=== PATIENT | male | born 1935 | race Caucasian/White ===

== ENCOUNTER 2017-06-08 06:05 | Emergency (ER) | payer OTHER ==
[~2017-06-08] VITALS: Ht 170.2 cm; Wt 92.5 kg
[2017-06-08 06:11] VITALS: BP 132/64
[2017-06-08] MEDS ORDERED: BACITRACIN-POLYMYXIN B TOPICAL OINT UD TOP ONE ×2 (07:04→07:15)
== END 2017-06-08 07:49 | disposition home or self-care (01) ==
LOC: ER 06:05
DX: S61.200D Unspecified open wound of right index finger without damage to nail, subsequent encounter (principal); I10 Essential (primary) hypertension; E07.89 Other specified disorders of thyroid; X58.XXXD Exposure to other specified factors, subsequent encounter

== ENCOUNTER 2019-11-04 17:42 | Emergency (ER) | payer OTHER ==
[~2019-11-04] VITALS: Ht 170.2 cm; Wt 70.3 kg
[~2019-11-04 17:42] MED LIST: CALC667C5 PO; ERGO1CAP23 PO; FAM20T PO; FURO40TA4 PO; LEVO200T7 PO; NEPVITT PO; OMEP20TA PO; SODI325T PO
[2019-11-04 19:18] VITALS: BP 99/36
[2019-11-04 19:29] LABS: Basophils # (auto) 0.1 uL; Basophils % (auto) 1.2 % (0.0-2.0); Eosinophils # (auto) 0.1 uL; Eosinophils % (auto) 1.3 % (0.0-7.0); Hematocrit 26.8 % (41.0-53.0); Hemoglobin 9.1 g/dL (13.5-17.5); Lymphocytes # (auto) 1.4 uL; Lymphocytes % (auto) 22.9 % (10.0-50.0); Mean Corpuscular Hemoglobin 32.6 pg (28.0-32.0); Monocytes # (auto) 0.8 uL; Monocytes % (auto) 12.5 % (0.0-12.0); Neutrophils # (auto) 3.9 uL; Neutrophils % (auto) 62.1 % (37.0-80.0); Platelet Count (auto) 99 10^3/uL (140-450); Red Blood Cells 2.79 10^6/uL (4.5-5.90); Red Cell Distribution Width 14.2 % (11.8-14.3); White Blood Cell 6.2 10^3/uL (4.4-10.8)
[2019-11-04 19:43] LABS: Albumin 2.5 g/dL (3.4-5.0); BUN/Creatinine Ratio 5.5; Calcium 7.7 mg/dL (8.5-10.1); Potassium 3.1 mmol/L (3.5-5.1)
[2019-11-04 19:46] LABS: Bilirubin, Total 1.1 mg/dL (0.2-1.0); Total Protein 6.2 g/dL (6.4-8.2)
[2019-11-04] MEDS ORDERED: POTASSIUM EFFERVESENT TAB 25 MEQ PO ONE (22:00)
== END 2019-11-04 22:53 | disposition home or self-care (01) ==
LOC: ER 17:53
DX: E87.6 Hypokalemia (principal); I12.0 Hypertensive chronic kidney disease with stage 5 chronic kidney disease or end stage renal disease; N18.6 End stage renal disease; R19.7 Diarrhea, unspecified
CPT/HCPCS: 36415; 71045; 80053; 85025; 86141; 93005

== ENCOUNTER 2020-01-26 13:18 | Inpatient (IN) | payer OTHER, SELFPAY ==
[~2020-01-26] VITALS: Ht 167.6 cm; Wt 74.1 kg
[~2020-01-26 13:18] MED LIST changes: +SPIR50TA5 PO
[2020-01-26] MEDS ORDERED: SODIUM CHLORIDE 0.9% 1,000 ML IV ONE (13:27)
[2020-01-26 14:44] LABS: Basophils # (auto) 0 10 ^3/uL (0-0.2); Basophils % (auto) 0.1 % (0.0-2.0); Eosinophils # (auto) 0 10 ^3/uL (0-0.8); Eosinophils % (auto) 0.1 % (0.0-7.0); Nucleated Red Blood Cells % 0.1 %; Red Cell Distribution Width 20.3 % (11.8-14.3)
[2020-01-26 14:45] LABS: Hematocrit 28.9 % (41.0-53.0); Hemoglobin 9.6 g/dL (13.5-17.5); Mean Corpuscular Hemoglobin 33.4 pg (28.0-32.0); Mean Corpuscular Hgb Conc. 33.3 g/dL (32.0-36.0); Mean Corpuscular Volume 100.3 fL (80.0-100.0); Monocytes # (auto) 0.3 10 ^3/uL (0-1.3); Monocytes % (auto) 4.8 % (0.0-12.0); Neutrophils # (auto) 5.8 10 ^3/uL (1.6-8.6); Platelet Count (auto) 36 10^3/uL (140-450); Red Blood Cells 2.88 10^6/uL (4.5-5.90); White Blood Cell 7.1 10^3/uL (4.4-10.8)
[2020-01-26 14:58] LABS: Albumin 2.5 g/dL (3.4-5.0); Calcium 7.3 mg/dL (8.5-10.1); Potassium 3.7 mmol/L (3.5-5.1)
[2020-01-26 15:05] LABS: BUN/Creatinine Ratio 5.8; Total Protein 5.8 g/dL (6.4-8.2)
[2020-01-26 15:07] LABS: INR 1.81 (0.9-1.15); Partial Thromboplastin Time 54.8 sec (23.64-32.05)
[2020-01-26] MEDS ORDERED: MORPHINE SULF INJ 2 MG/ML SYRINGE 1ML IV PRN (17:30)
[2020-01-26] MEDS ORDERED: ERGOCALCIFEROL 50,000 UNIT(1.25MG) CAP PO SCH (17:30)
[2020-01-26] MEDS ORDERED: BUMETANIDE 2.5mg/10ml (0.25 mg/ml) INJ IV ONE (17:30)
[2020-01-26] MEDS ORDERED: NITROGLYCERIN 0.4 MG SL TAB SL PRN (17:30)
[2020-01-26] MEDS ORDERED: CHOLECALCIFEROL (VITD3) 1,000IU=25mCg TAB PO SCH (18:00)
[2020-01-26 18:09] LABS: Magnesium 1.9 mg/dL (1.6-2.6)
[2020-01-26 18:11] LABS: Lactic Acid w/Reflex 2.8 mmol/L (0.4-2.0)
[2020-01-26] MEDS: CHOLECALCIFEROL (VITD3) 1,000IU=25mCg TAB PO SCH (18:14)
[2020-01-26] MEDS: CALCIUM ACETATE 667 MG CAP PO SCH (18:14)
[2020-01-26 18:18] LABS: CRP High Sensitivity 5.35 mg/dL (< 0.3)
--- NOTE | 2020-01-26 19:04 | NUR ---
PT ARRIVED FROM ER VIA GURNEY, TRANSFERRED PT TO BED, PROVIDED COMFORTABLE ENVIRONMENT, PT AWAKE, ALERT, ORIENTEDx3. IV TO LEFT HAND #[id number]. ROSS CATHETER IN PLACE, BLOOD EVIDENT IN TUBING WITH LACK OF URINE, PT IS ESRD ON HD. PT PRESENT WITH PRESSURE ULCER WITH REDNESS TO BUTTOCKS. HYGIENE CARE PROVIDED. BED LOCKED AND IN LOWEST POSITION, CALL LIGHT WITHIN REACH.
[2020-01-26 21:01] VITALS: BP 124/61
[2020-01-26] MEDS ORDERED: PATIENTS OWN MEDICATION (Omeprazole (Gnp Omeprazole) 20 MG) PO SCH (22:00)
[2020-01-26 22:08] VITALS: BP 108/53
[2020-01-26] MEDS: FAMOTIDINE 20 MG TAB PO SCH (22:19)
[2020-01-26] MEDS: SODIUM BICARBONATE 650 MG TAB PO SCH (22:19)
[2020-01-26] MEDS: ALBUTEROL SULF HFA 90MCG INH 200DOSE IN SCH (22:35)
--- NOTE | 2020-01-26 22:35 | NUR ---
Respiratory note: ASSESSED PT. PT HAS NO S/S OF DISTRESS. POX 96-98% ON 2LPM NC. MDI NOT AVAILABLE AT THIS TIME. NO SOS OF DISTRESS NOTED. LEAD RT RADHA AND RN AWARE. WILL CONTINUE TO MONITOR, NEEDED.
[2020-01-27] VITALS (8 sets, daily range): BP systolic 92–105; BP diastolic 43–58
[2020-01-27] MEDS ORDERED: VANC125PO PO (04:12)
[2020-01-27] MEDS ORDERED: MID10T PO (04:12)
[2020-01-27] MEDS ORDERED: ERGO1CAP6 PO (04:16)
[2020-01-27] MEDS ORDERED: ALLO100T PO (04:16)
[2020-01-27] MEDS ORDERED: PANT40TA2 PO (04:16)
[2020-01-27 05:38] LABS: Basophils # (auto) 0 10 ^3/uL (0-0.2); Basophils % (auto) 0.1 % (0.0-2.0); Eosinophils # (auto) 0 10 ^3/uL (0-0.8); Eosinophils % (auto) 0.1 % (0.0-7.0); Hematocrit 25.5 % (41.0-53.0); Hemoglobin 8.7 g/dL (13.5-17.5); Lymphocytes # (auto) 1.2 10 ^3/uL (0.4-5.4); Lymphocytes % (auto) 22.8 % (10.0-50.0); Mean Corpuscular Hemoglobin 33.9 pg (28.0-32.0); Mean Corpuscular Hgb Conc. 34.2 g/dL (32.0-36.0); Mean Corpuscular Volume 99.1 fL (80.0-100.0); Monocytes # (auto) 0.2 10 ^3/uL (0-1.3); Monocytes % (auto) 4.6 % (0.0-12.0); Neutrophils # (auto) 3.7 10 ^3/uL (1.6-8.6); Neutrophils % (auto) 72.4 % (37.0-80.0); Nucleated Red Blood Cells % 0.1 %; Platelet Count (auto) 25 10^3/uL (140-450); Red Blood Cells 2.57 10^6/uL (4.5-5.90); Red Cell Distribution Width 19.3 % (11.8-14.3); White Blood Cell 5.1 10^3/uL (4.4-10.8)
[2020-01-27 05:57] LABS: Albumin 2.3 g/dL (3.4-5.0); Calcium 7.1 mg/dL (8.5-10.1); Potassium 3.9 mmol/L (3.5-5.1)
[2020-01-27 06:00] LABS: BUN/Creatinine Ratio 6.1; Bilirubin, Total 0.9 mg/dL (0.2-1.0); Total Protein 5.1 g/dL (6.4-8.2)
[2020-01-27] MEDS ORDERED: ALBUTEROL SULFATE 90 MCG MDI IN ONE (06:08)
--- NOTE | 2020-01-27 06:10 | NUR ---
WOUND CARE PHOTOS WOUND PHOTOS TAKEN OF SACRUM/BUTTOCKS. LEFT FA AND RIGHT HIP INCISION. PATIENT TURNED TO LEFT SIDE WITH MOD ASSIST. PILLOWS PLACED TO BACKSIDE FOR SUPPORT. BED ALARM REMAINS ON. CALL LIGHT IN WITHIN PATIENT'S REACH.
[2020-01-27] MEDS: SODIUM BICARBONATE 650 MG TAB PO SCH (06:33)
[2020-01-27] MEDS: LEVOTHYROXINE SODIUM 100 MCG TAB PO SCH (06:33)
[2020-01-27 06:49] LABS: Urine Bacteria NONE SEEN /hpf (None Seen); Urine Blood 3+ /uL (Negative); Urine WBC 32414 /hpf (0 - 3); Urine WBC Clumps PRESENT /hpf (None Seen)
[2020-01-27 06:52] LABS: Urine Specific Gravity 1.024 (1.001-1.035)
[2020-01-27] MEDS: ALBUTEROL SULF HFA 90MCG INH 200DOSE IN SCH ×3 (07:02→22:00)
--- NOTE | 2020-01-27 07:02 | NUR ---
Respiratory note: SCHEDULED 0600 BREATHING TX ADMINISTERED VIA MDI WITH SPACER. EDUCATED PT ON HOW TO ADMINISTER MDI. PT VERBALIZED AND DEMONSTRATED UNDERSTANDING. HR 67, RR 18, SPO2 96% ON 3LPM NASAL CANNULA, NO S/S OF RESPIRATORY DISTRESS NOTED.
--- NOTE | 2020-01-27 07:10 | NUR ---
Opening Shift Note Assumed care of patient, awake and alert. No S/S of distress/SOB or pain. Instructed on POC and to call for assist PRN, will continue to monitor for changes Q1hr and PRN.
[2020-01-27] MEDS: CALCIUM ACETATE 667 MG CAP PO SCH ×3 (08:00→17:03)
[2020-01-27] MEDS: ZINC SULFATE 220mg CAP or TAB PO SCH (08:48)
[2020-01-27] MEDS: CHOLECALCIFEROL (VITD3) 1,000IU=25mCg TAB PO SCH (08:49)
[2020-01-27] MEDS: B-COMPLEX W/ C & FOLIC ACID(NEPHROVITE TAB) PO SCH (08:49)
[2020-01-27] MEDS: FAMOTIDINE 20 MG TAB PO SCH (08:49)
[2020-01-27] MEDS ORDERED: AZITHROMYCIN 500MG/D5WorNS 250ml IV SCH (10:00)
[2020-01-27] MEDS ORDERED: ALBUMIN 25% 100 ML IV PRN ×2 (11:15→17:15)
--- NOTE | 2020-01-27 11:45 | NUR ---
pt wants labs to be drawn during diaylisis, lab made aware
--- NOTE | 2020-01-27 12:10 | NUR ---
wound care at bedside
[2020-01-27] MEDS: MIDODRINE HCL 10 MG TAB PO SCH ×2 (12:14→17:12)
--- NOTE | 2020-01-27 12:22 | NUR ---
WOUND CARE NOTE: Wound care in to see patient per wound care request regarding multiple wounds/skin integrity issue that are noted present on admission. Bedside nurse took photograph of patient's wounds/skin issue upon admission for reference. Patient is 84 years old male with admitting diagnosis of Acute on Chronic Systolic Heart Failure. Patient is resting in bed in Rm. 235A. Patient is awake, alert and able to verbalize needs. Patient is in no stated pain at this time. Patient is able to assist in turning and repositioning and his Aftab score is 15. Skin/wound assessment done with the assistance of patient's nurse, PELON Orellana. Noted patient's bilateral arm has scattered ecchymosis. 1.5x0.5cm open partial thickness skin tear noted on his Lt forearm. Wound is red with pink dana wound, no drainage or odor noted. Cleansed patient's L forearm skin tear with NS, patted dry with gauze and covered with Band aid. Patient's Rt hip has well healed/approximated scar incision, area is clean and dry, left open to air. Patient's L (0.5x0.5cm) and Rt sacrum (0.7x0.5cm) noted with open partial thickness wounds consistent with Stage 2 pressure injury. Wounds are red with bright red dana wound, no drainage/odor noted. Inner buttocks, perirectal noted with moist redness, consistent with MASD. Dana care given and applied Z Guard cream to sacral and buttocks area. Patient tolerated well, repositioned for comfort facing his Lt. side, redistributed pressure points with pillows. Bed in low position, call ray on hand, bed alarm on. RECOMMENDATION: Nursing to continue with BID/PRN cleaning and application of Z Guard cream to sacral, buttocks; EOD/PRN dressing change to L forearm skin tear per MD order, Dietary consult , frequent turning and repositioning schedule as condition permits, redistribute pressure points with pillows,elevate heels on pillows, continue monitoring by wound care while patient is hospitalized. Addendum: 01/27/20 at 1512 by Helen Velazquez RN Amended: Links added.
[2020-01-27] MEDS ORDERED: cefTRIAXone 1GM/50ML D5W 50 ML IV ONE (14:30)
--- NOTE | 2020-01-27 14:50 | NUR ---
Respiratory note: BREATHING TX ADMINISTERED VIA MDI WITH SPACER, PT TOLERATED WELL, NO ADVERSE REACTIONS NOTED. HR 73, RR 20, SPO2 99% ON 2LPM NASAL CANNULA. NO S/S OF RESPIRATORY DISTRESS NOTED.
--- NOTE | 2020-01-27 17:27 | NUR ---
dialysis nurse at bedside with pt albumin and heparin given to hd rn
--- NOTE | 2020-01-27 17:35 | NUR ---
[facility] lab speciment obtained and sent to lab via keely
--- NOTE | 2020-01-27 20:00 | NUR ---
Assumed Care of Patient Report received from Abeba BIRD. Assumed care of patient, awake and alert x4. Patient is currently receiving dialysis. Dialysis nurse noted at the bedside. Patient denies pain or shortness of breath at this time. Instructed on plan of care and to call for assistance as needed, patient verbalized understanding. Bed is locked in lowest position, side rails x 2 are up, call light is within reach, and bed alarm is on.
--- NOTE | 2020-01-27 20:50 | NUR ---
Dialysis Competed Per dialysis nurse, 1L was taken out. Patient is laying in bed with even and unlabored respirations. No sign/symptoms of distress noted or verbalized at this time. Clean, dry, and intact dressing noted to right upper chest.
[2020-01-27] MEDS ORDERED: EPOETIN ALFA 10,000 UNIT/1 ML VIAL SC ONE (21:00)
[2020-01-28 01:12] VITALS: BP 97/43
[2020-01-28 06:10] VITALS: BP 96/46
[2020-01-28] MEDS: ALBUTEROL SULF HFA 90MCG INH 200DOSE IN SCH ×3 (06:30→23:05)
--- NOTE | 2020-01-28 06:30 | NUR ---
Wound Care Cleansed patient's sacrum with clean soap and water, patted dry, applied zguard and optifoam over sacrum. Patient tolerated well and repositioned.
[2020-01-28] MEDS: MIDODRINE HCL 10 MG TAB PO SCH ×3 (07:07→18:00)
[2020-01-28] MEDS: LEVOTHYROXINE SODIUM 100 MCG TAB PO SCH (07:07)
[2020-01-28 07:08] LABS: BUN/Creatinine Ratio 5.9; Calcium 6.8 mg/dL (8.5-10.1); Magnesium 1.9 mg/dL (1.6-2.6); Potassium 3.4 mmol/L (3.5-5.1)
--- NOTE | 2020-01-28 07:43 | NUR ---
Spoke with Lab Re: Unsuccessful Lab Draw Spoke with palletizer Gaudencio and notified him that this RN attempted 3 times to draw blood from patient and was unsuccessful per Gaudencio he "will write it down."
[2020-01-28 08:00] VITALS: BP 95/54
[2020-01-28] MEDS: CALCIUM ACETATE 667 MG CAP PO SCH ×3 (08:16→18:00)
[2020-01-28 08:20] LABS: Basophils # (auto) 0 10 ^3/uL (0-0.2); Basophils % (auto) 0.3 % (0.0-2.0); Eosinophils # (auto) 0 10 ^3/uL (0-0.8); Hematocrit 25.4 % (41.0-53.0); Hemoglobin 8.5 g/dL (13.5-17.5); Lymphocytes # (auto) 0.8 10 ^3/uL (0.4-5.4); Lymphocytes % (auto) 16.8 % (10.0-50.0); Mean Corpuscular Hgb Conc. 33.6 g/dL (32.0-36.0); Mean Corpuscular Volume 98.3 fL (80.0-100.0); Monocytes # (auto) 0.2 10 ^3/uL (0-1.3); Monocytes % (auto) 5.4 % (0.0-12.0); Neutrophils # (auto) 3.5 10 ^3/uL (1.6-8.6); Neutrophils % (auto) 77.5 % (37.0-80.0); Nucleated Red Blood Cells % 0.3 %; Platelet Count (auto) 26 10^3/uL (140-450); Red Blood Cells 2.59 10^6/uL (4.5-5.90); Red Cell Distribution Width 19.2 % (11.8-14.3); White Blood Cell 4.5 10^3/uL (4.4-10.8)
[2020-01-28 08:25] VITALS: BP 95/54
[2020-01-28] MEDS: cefTRIAXone 1GM/50ML D5W 50 ML IV SCH (09:23)
[2020-01-28] MEDS: ZINC SULFATE 220mg CAP or TAB PO SCH (09:24)
[2020-01-28] MEDS: B-COMPLEX W/ C & FOLIC ACID(NEPHROVITE TAB) PO SCH (09:24)
[2020-01-28] MEDS: FAMOTIDINE 20 MG TAB PO SCH (09:25)
[2020-01-28] MEDS: CHOLECALCIFEROL (VITD3) 1,000IU=25mCg TAB PO SCH (09:26)
[2020-01-28] MEDS ORDERED: AZITHROMYCIN 250 MG TAB PO ONE (16:15)
--- NOTE | 2020-01-28 19:10 | NUR ---
Opening Shift Note Assumed care of patient, awake, alert and oriented x4, even and unlabored respirations on 3L oxygen via NC, so S/S of distress/SOB or pain. Bed in lowest locked position, side rails up x2, and call light within reach. Instructed on POC and to call for assist PRN, will continue to monitor for changes Q1hr and PRN.
[2020-01-28 22:00] VITALS: BP 107/51
--- NOTE | 2020-01-28 23:05 | NUR ---
Respiratory note: ALBUTEROL GIVEN VIA MDI 90 MCG BY RN
[2020-01-29] MEDS: ALBUTEROL SULF HFA 90MCG INH 200DOSE IN SCH ×3 (06:50→22:06)
[2020-01-29] MEDS: MIDODRINE HCL 10 MG TAB PO SCH ×3 (06:51→22:05)
[2020-01-29] MEDS: LEVOTHYROXINE SODIUM 100 MCG TAB PO SCH (06:52)
[2020-01-29 07:33] LABS: Basophils # (auto) 0 10 ^3/uL (0-0.2); Eosinophils # (auto) 0 10 ^3/uL (0-0.8); Eosinophils % (auto) 0.1 % (0.0-7.0); Hemoglobin 8.5 g/dL (13.5-17.5); Lymphocytes # (auto) 1.2 10 ^3/uL (0.4-5.4); Nucleated Red Blood Cells % 0.1 %
[2020-01-29] MEDS: CALCIUM ACETATE 667 MG CAP PO SCH ×3 (07:33→18:00)
[2020-01-29 07:37] LABS: Basophils % (auto) 0.1 % (0.0-2.0); Hematocrit 24.7 % (41.0-53.0); Lymphocytes % (auto) 25.9 % (10.0-50.0); Mean Corpuscular Hemoglobin 33.8 pg (28.0-32.0); Mean Corpuscular Hgb Conc. 34.4 g/dL (32.0-36.0); Mean Corpuscular Volume 98.2 fL (80.0-100.0); Monocytes # (auto) 0.2 10 ^3/uL (0-1.3); Monocytes % (auto) 5.4 % (0.0-12.0); Neutrophils # (auto) 3.1 10 ^3/uL (1.6-8.6); Neutrophils % (auto) 68.5 % (37.0-80.0); Red Blood Cells 2.52 10^6/uL (4.5-5.90); Red Cell Distribution Width 19.4 % (11.8-14.3); White Blood Cell 4.6 10^3/uL (4.4-10.8)
[2020-01-29 07:40] LABS: Platelet Count (auto) 26 10^3/uL (140-450)
[2020-01-29 08:00] VITALS: BP 113/49
[2020-01-29] MEDS: B-COMPLEX W/ C & FOLIC ACID(NEPHROVITE TAB) PO SCH (09:38)
[2020-01-29] MEDS: FAMOTIDINE 20 MG TAB PO SCH (09:38)
[2020-01-29] MEDS: cefTRIAXone 1GM/50ML D5W 50 ML IV SCH (09:38)
[2020-01-29] MEDS: ZINC SULFATE 220mg CAP or TAB PO SCH (09:38)
[2020-01-29] MEDS: CHOLECALCIFEROL (VITD3) 1,000IU=25mCg TAB PO SCH (09:39)
[2020-01-29] MEDS: AZITHROMYCIN 250 MG TAB PO SCH (09:40)
[2020-01-29 12:00] VITALS: BP 122/58
--- NOTE | 2020-01-29 13:10 | NUR ---
Nutrition Assessment Notes Please refer to link for full assessment notes. Est energy needs: 5814-3053 kcals (30-35 kcal/kgBW) d/t pt receiving HD Est protein needs: 82-90 gms/day (1.1-1.2 gm/kgBW) d/t pt receiving HD Will continue to monitor and reassess prn. Addendum: 01/29/20 at [address] Amended: Links added.
--- NOTE | 2020-01-29 14:14 | NUR ---
assessment Patient is a 84 year old male who is alert and oriented. Prior to admission patient lived home with family and functioned with assistance. Per patients daughter Amrita patient will return home to his prior living arrangements post discharge and she will transport him home. Patient is on service with [facility] T TH SAT at 4pm. Patient has a fww, wheelchair, hospital bed and sherman lift for home use. Patient may need home oxygen due to being Covid 19 positive. I informed patient he has a right to speak to a social worker delinquency prevention regarding all care. I informed patient he has a right to participate in any and all discharge planning. Patient has a POA and advanced directive. Patient verbalized understanding and agreed to discharge plan. Addendum: 01/29/20 at 1417 by Charu PORTER Amended: Links added.
[2020-01-29 16:00] VITALS: BP 99/51
[2020-01-29] MEDS ORDERED: EPOETIN ALFA 10,000 UNIT/1 ML VIAL SC ONE (21:00)
[2020-01-29 22:00] VITALS: BP 95/50
--- NOTE | 2020-01-29 22:19 | NUR ---
ALBUTEROL ADMINISTERED ORDERED VIA SPACER.
[2020-01-30] MEDS ORDERED: HYDROcodone-ACET 5/325MG TAB PO PRN (00:30)
[2020-01-30] MEDS: ALBUTEROL SULF HFA 90MCG INH 200DOSE IN SCH ×3 (06:52→21:46)
[2020-01-30] MEDS: MIDODRINE HCL 10 MG TAB PO SCH ×3 (06:52→18:58)
--- NOTE | 2020-01-30 06:52 | NUR ---
BREATHING TX ADMINISTERED VIA MDI WITH SPACER, PT TOLERATED WELL, NO ADVERSE REACTIONS NOTED. EDUCATED PT ON INHALER ADMINISTRATION WITH SPACER, PT VERBALIZED AND DEMONSTRATED UNDERSTANDING. HR 96, RR 15, SPO2 96% ON 2LPM NASAL CANNULA. NO SOB NOTED. WILL CONTINUE TO MONITOR PT.
[2020-01-30] MEDS: LEVOTHYROXINE SODIUM 100 MCG TAB PO SCH (06:53)
--- NOTE | 2020-01-30 08:18 | NUR ---
Called lab and spoke to annalise and told her 2 RN's tried to draw labs unsuccessfully and we need them to come up and draw. She stated they are running behind today but will add patient to their list.
[2020-01-30 09:00] VITALS: BP 114/53
[2020-01-30] MEDS: CALCIUM ACETATE 667 MG CAP PO SCH ×3 (09:11→18:58)
[2020-01-30] MEDS: ZINC SULFATE 220mg CAP or TAB PO SCH (09:12)
[2020-01-30] MEDS: FAMOTIDINE 20 MG TAB PO SCH (09:12)
[2020-01-30] MEDS: B-COMPLEX W/ C & FOLIC ACID(NEPHROVITE TAB) PO SCH (09:12)
[2020-01-30] MEDS: cefTRIAXone 1GM/50ML D5W 50 ML IV SCH (09:12)
[2020-01-30] MEDS: AZITHROMYCIN 250 MG TAB PO SCH (09:13)
[2020-01-30] MEDS: CHOLECALCIFEROL (VITD3) 1,000IU=25mCg TAB PO SCH (09:13)
[2020-01-30 10:48] LABS: Basophils # (auto) 0 10 ^3/uL (0-0.2); Eosinophils # (auto) 0 10 ^3/uL (0-0.8); Eosinophils % (auto) 0.3 % (0.0-7.0); Mean Corpuscular Hgb Conc. 33.9 g/dL (32.0-36.0); Monocytes # (auto) 0.3 10 ^3/uL (0-1.3); Platelet Count (auto) 29 10^3/uL (140-450); Red Blood Cells 2.69 10^6/uL (4.5-5.90)
[2020-01-30 10:50] LABS: Basophils % (auto) 0.3 % (0.0-2.0); Hematocrit 26.4 % (41.0-53.0); Hemoglobin 8.9 g/dL (13.5-17.5); Lymphocytes % (auto) 18.5 % (10.0-50.0); Mean Corpuscular Hemoglobin 33.2 pg (28.0-32.0); Mean Corpuscular Volume 98.1 fL (80.0-100.0); Monocytes % (auto) 5.2 % (0.0-12.0); Neutrophils # (auto) 3.9 10 ^3/uL (1.6-8.6); Neutrophils % (auto) 75.7 % (37.0-80.0); Red Cell Distribution Width 19.7 % (11.8-14.3); White Blood Cell 5.2 10^3/uL (4.4-10.8)
[2020-01-30 11:12] LABS: Potassium 3.7 mmol/L (3.5-5.1)
[2020-01-30 11:15] LABS: BUN/Creatinine Ratio 5.9; Calcium 7.3 mg/dL (8.5-10.1); Magnesium 1.9 mg/dL (1.6-2.6)
--- NOTE | 2020-01-30 13:00 | NUR ---
DR. FARRELL AT BEDSIDE WITH PATIENT TO DISCUSS PLAN OF CARE
--- NOTE | 2020-01-30 14:26 | NUR ---
BREATHING TX ADMINISTERED VIA MDI WITH SPACER, PT TOLERATED WELL, NO ADVERSE REACTIONS NOTED. EDUCATED PT ON INHALER ADMINISTRATION WITH SPACER, PT VERBALIZED AND DEMONSTRATED UNDERSTANDING. HR 58, RR 15, SPO2 96% ON 2LPM NASAL CANNULA. NO SOB NOTED. WILL CONTINUE TO MONITOR PT.
[2020-01-30] MEDS ORDERED: ERTAPENEM SOD INJ 0.5 GM in SODIUM CHL 0.9% 50 ML IV SCH (17:00)
[2020-01-30] MEDS ORDERED: LOPERAMIDE 2 mg/15ml ORAL soln GT PRN (18:00)
[2020-01-30] MEDS: ERTAPENEM SOD INJ 0.5 GM in SODIUM CHL 0.9% 50 ML IV SCH (18:57)
[2020-01-30] MEDS: LOPERAMIDE 2 mg/15ml ORAL soln PO ONE ×2 (18:57→19:49)
--- NOTE | 2020-01-30 19:53 | NUR ---
Opening Shift Note Assumed care of patient, awake and alert x 4. No S/S of distress/SOB. Patient is on 3 l/min NC. Bed is in lowest position and locked. Call light within reach. Board updated. Tele box number matches monitor and leads are in correct placement. Continuous O2 sat monitor in correct placement on finger. Pike catheter secured to thigh and collection bag hangs below bladder, secured to non-moveable part of bedrame. Instructed on POC and to call for assist PRN, will continue to monitor for changes Q1hr and PRN.
--- NOTE | 2020-01-30 20:04 | NUR ---
Spoke to MD Banegas, who is covering for MD Shaw, to notify him of positive urine cultures. Invanz is susceptible to both found bacteria, Proteus Vulgaris and ESBL-Klebsiella pneumoniae. No other orders given.
--- NOTE | 2020-01-30 20:34 | NUR ---
Wound care performed. Cleansed medial sacrum and buttock with soar and water, patted dry, and covered wounds with z-guard. Optifoam placed over site. Patient tolerated well.
[2020-01-30 21:00] VITALS: BP 97/43
[2020-01-30] MEDS ORDERED: LOPERAMIDE 2 mg/15ml ORAL soln PO PRN (21:30)
--- NOTE | 2020-01-30 21:46 | NUR ---
Respiratory note: INHALER GIVEN PER RN JUSTIN.
[2020-01-31 05:00] VITALS: BP 103/51
--- NOTE | 2020-01-31 05:00 | NUR ---
Unable to obtain lab draw after two attempts. Braden from laboratory noted. Per Braden, he will notify lab and have someone come up and do the draw. Addendum: 01/31/20 at 0621 by MI KLEIN RN "noted" is notified.
[2020-01-31] MEDS: MIDODRINE HCL 10 MG TAB PO SCH ×3 (05:52→17:24)
[2020-01-31] MEDS: ALBUTEROL SULF HFA 90MCG INH 200DOSE IN SCH ×4 (05:52→22:00)
[2020-01-31] MEDS: LEVOTHYROXINE SODIUM 100 MCG TAB PO SCH (05:52)
--- NOTE | 2020-01-31 05:52 | NUR ---
Respiratory note: MDI GIVEN BY RN. PT ON 2.0 LPM NC 02. HR 58, RR 18 AND SP02 95%.
--- NOTE | 2020-01-31 07:30 | NUR ---
Opening Shift Note Assumed care of patient, awake and alert, forgetful and [place]. No S/S of distress/SOB or pain. Labs drawn, patient set up for breakfast, dry cough. Instructed on POC and to call for assist PRN, will continue to monitor for changes Q1hr and PRN.
[2020-01-31 08:21] LABS: Basophils # (auto) 0 10 ^3/uL (0-0.2); Basophils % (auto) 0.3 % (0.0-2.0); Eosinophils # (auto) 0 10 ^3/uL (0-0.8); Eosinophils % (auto) 0.2 % (0.0-7.0); Hematocrit 30.7 % (41.0-53.0); Hemoglobin 10.3 g/dL (13.5-17.5); Lymphocytes # (auto) 0.8 10 ^3/uL (0.4-5.4); Mean Corpuscular Hemoglobin 33.1 pg (28.0-32.0); Mean Corpuscular Hgb Conc. 33.6 g/dL (32.0-36.0); Mean Corpuscular Volume 98.6 fL (80.0-100.0); Monocytes # (auto) 0.3 10 ^3/uL (0-1.3); Monocytes % (auto) 4.1 % (0.0-12.0); Neutrophils # (auto) 5.6 10 ^3/uL (1.6-8.6); Neutrophils % (auto) 83.4 % (37.0-80.0); Nucleated Red Blood Cells % 0.1 %; Platelet Count (auto) 34 10^3/uL (140-450); Red Blood Cells 3.11 10^6/uL (4.5-5.90); Red Cell Distribution Width 19.2 % (11.8-14.3); White Blood Cell 6.8 10^3/uL (4.4-10.8)
[2020-01-31 08:44] LABS: BUN/Creatinine Ratio 6.3; Calcium 7.5 mg/dL (8.5-10.1); Magnesium 1.9 mg/dL (1.6-2.6); Potassium 3.8 mmol/L (3.5-5.1)
--- NOTE | 2020-01-31 09:18 | NUR ---
New Skin Issue: Informed by bedside nurse that patient developed new skin tear to Rt upper arm "from elastic". Patient came in with multiple ecchymosis to bilateral arm. Bedside nurse cleansed patient's skin tear, photograph taken and apply dressing per MD order. Full skin/wound reevaluation on Sunday02/03/20. Continue with skin/wound plan of care.
[2020-01-31] MEDS: ZINC SULFATE 220mg CAP or TAB PO SCH (10:03)
[2020-01-31] MEDS: CALCIUM ACETATE 667 MG CAP PO SCH ×3 (10:03→17:24)
[2020-01-31] MEDS: B-COMPLEX W/ C & FOLIC ACID(NEPHROVITE TAB) PO SCH (10:04)
[2020-01-31] MEDS: CHOLECALCIFEROL (VITD3) 1,000IU=25mCg TAB PO SCH (10:04)
[2020-01-31] MEDS: FAMOTIDINE 20 MG TAB PO SCH (10:04)
[2020-01-31] MEDS: AZITHROMYCIN 250 MG TAB PO SCH (10:05)
--- NOTE | 2020-01-31 14:00 | NUR ---
Respiratory note: PT MDI NOT GIVEN. RT UNAVAILABLE AT THIS TIME TO AN EMERGENCY SITUATION IN ER.
[2020-01-31] MEDS: ASCORBIC ACID 500 MG TAB PO SCH (15:15)
[2020-01-31] MEDS ORDERED: TOCILIZUMAB 400 MG in SODIUM CHL 0.9% 80 ML IV ONE (16:30)
--- NOTE | 2020-01-31 16:30 | NUR ---
Patient has continueous cough, requesting medication to help, md paged, awaiting call back.
[2020-01-31] MEDS: guaiFENesin-DM 100/10mg/5ml SYR PO PRN ×2 (16:41→21:47)
[2020-01-31] MEDS: ERTAPENEM SOD INJ 0.5 GM in SODIUM CHL 0.9% 50 ML IV SCH (17:24)
[2020-01-31 18:44] VITALS: BP 109/57
--- NOTE | 2020-01-31 19:40 | NUR ---
Opening Shift Note Report received from day shift RN. Assumed care of patient, awake and alert. Patient reorientated to current situation. No S/S of distress/SOB noted and denies pain at this time. Patient respirations even and unlabored. Patient has persistent productive cough. Bed locked an left in the lowest position with side rails up x2 and call light is left within reach. Instructed on POC and to call for assist PRN, will continue to monitor for changes Q1hr and PRN.
[2020-01-31] MEDS ORDERED: LOPERAMIDE HCL 2 MG CAP PO PRN (21:45)
[2020-01-31] MEDS: methylPREDNISolone SOD SUCC 40 MG/ML VL IV SCH (21:47)
[2020-01-31 22:00] VITALS: BP 106/56
--- NOTE | 2020-01-31 22:30 | NUR ---
PLACED PT ON OXYMIZER 9L, SAT 92%. NO SOB OR RESP DISTRESS NOTED BUT PT COUGHING NONE STOP. SAT ON 6L NS WAS 83-86%
[2020-02-01] VITALS (70 sets, daily range): BP systolic 68–165; BP diastolic 33–87
[2020-02-01] MEDS: LEVOTHYROXINE SODIUM 100 MCG TAB PO SCH (06:34)
[2020-02-01] MEDS: MIDODRINE HCL 10 MG TAB PO SCH ×3 (06:34→18:30)
--- NOTE | 2020-02-01 07:42 | NUR ---
Opening Shift Note Assumed care of patient, awake and alert. No S/S of distress/SOB or pain. Continues cough, on oxymizer 9L, sat 92. Instructed on POC and to call for assist PRN, will continue to monitor for changes Q1hr and PRN.
[2020-02-01 08:02] LABS: Basophils # (auto) 0 10 ^3/uL (0-0.2); Eosinophils # (auto) 0 10 ^3/uL (0-0.8); Lymphocytes # (auto) 0.3 10 ^3/uL (0.4-5.4); Monocytes # (auto) 0.1 10 ^3/uL (0-1.3)
[2020-02-01 08:03] LABS: Hematocrit 29.5 % (41.0-53.0); Lymphocytes % (auto) 3.3 % (10.0-50.0); Monocytes % (auto) 1.5 % (0.0-12.0); Neutrophils # (auto) 9.2 10 ^3/uL (1.6-8.6); Neutrophils % (auto) 95.2 % (37.0-80.0); Nucleated Red Blood Cells % 0.1 %; Platelet Count (auto) 34 10^3/uL (140-450); Red Blood Cells 2.95 10^6/uL (4.5-5.90); Red Cell Distribution Width 19.9 % (11.8-14.3); White Blood Cell 9.6 10^3/uL (4.4-10.8)
[2020-02-01 08:21] LABS: BUN/Creatinine Ratio 6.7; Calcium 7.5 mg/dL (8.5-10.1); Potassium 3.9 mmol/L (3.5-5.1)
--- NOTE | 2020-02-01 08:40 | NUR ---
Patient sats at 85 on 9L oxy, RT called to evaluate, new pulse ox applied to multiple areas, pt placed on 12 L oxymizer, sat at 93_94% , no distress noted, but continues cough, will continue to monitor.
[2020-02-01] MEDS: methylPREDNISolone SOD SUCC 40 MG/ML VL IV SCH ×2 (09:43→22:00)
[2020-02-01] MEDS: ZINC SULFATE 220mg CAP or TAB PO SCH (09:43)
[2020-02-01] MEDS: B-COMPLEX W/ C & FOLIC ACID(NEPHROVITE TAB) PO SCH (09:43)
[2020-02-01] MEDS: CALCIUM ACETATE 667 MG CAP PO SCH ×3 (09:43→18:30)
[2020-02-01] MEDS: FAMOTIDINE 20 MG TAB PO SCH (09:44)
[2020-02-01] MEDS: CHOLECALCIFEROL (VITD3) 1,000IU=25mCg TAB PO SCH (09:44)
[2020-02-01] MEDS: ASCORBIC ACID 500 MG TAB PO SCH (09:44)
[2020-02-01] MEDS: AZITHROMYCIN 250 MG TAB PO SCH (09:45)
[2020-02-01] MEDS: guaiFENesin-DM 100/10mg/5ml SYR PO PRN (10:12)
--- NOTE | 2020-02-01 10:45 | NUR ---
Respiratory note: PT PLACED ON NRB BY RN. ENTRY TECH CONTACTED FOR POSSIBLE TRANSFER TO ICU OR [facility] PT WILL REQUIRE HIGH-FLOW NC.
--- NOTE | 2020-02-01 10:45 | NUR ---
Patient sat 83-84 on 12 L oxy, mercy RT, pt placed on 15L nonrebreather sat at 88-90. Dr Colin madrid for transfer orders, orders received. Patient to go to icu bed 112.
--- NOTE | 2020-02-01 12:00 | NUR ---
Reports was called to [facility], pt transfered with all his belonging to 112, Daughter Amrita notified of transfer and pts condition.
--- NOTE | 2020-02-01 12:05 | NUR ---
RECEIVED PATIENT INTO ROOM 112 - PLACED PATIENT IN DROPLET ISOLATION DUE TO POSITIVE COVID19 TESTING RESULTS. PATIENT ON HI-FLOW O2 @ 100% FIO2 AND 25L -SAO2 89-90%. RESP NONLABORED, CHEST BARREL SHAPED. OCCASIONAL CONGESTED COUGH NOTED - NO SPUTUM EXPECTORATED. LUNGS VERY DIMINISHED BILAT. PATIENT VERY [place]. ORIENTED X 4 AND COOPERATIVE. +3 BILAT LOWER EXTREMITY EDEMA NOTED - SEE FLOW SHEET FOR REMAINDER OF ASSESSMENT.
--- NOTE | 2020-02-01 13:15 | NUR ---
DR SHELTON VISITS AND EXAMINES PATIENT - UPDATED ON NEED FOR TRANSFER TO ICU - NO NEW ORDERS RECEIVED.
--- NOTE | 2020-02-01 13:30 | NUR ---
DR SAMANO VISITS - NOTIFIED OF NEED FOR PATIENT TRANSFER TO ICU - HD ORDERS RECEIVED.
[2020-02-01] MEDS ORDERED: ALBUMIN 25% 50 ML IV ONE ×3 (13:45→15:15)
--- NOTE | 2020-02-01 13:45 | NUR ---
PATIENT OCCASIONALLY PULLING OFF HI-FLOW O2 THOUGH REMINDED TO LEAVE IN PLACE.
--- NOTE | 2020-02-01 14:00 | NUR ---
HD TREATMENT STARTED.
--- NOTE | 2020-02-01 14:15 | NUR ---
PATIENT CONT'D TO REMOVE HI-FLOW O2 - DESATURATES TO 80% - RT SOFT WRIST RESTRAINT AND MITT APPLIED.
--- NOTE | 2020-02-01 14:30 | NUR ---
BP UNSTABLE - SEE VITALS FLOWSHEET.
--- NOTE | 2020-02-01 14:40 | NUR ---
DR SHELTON NOTIFIED OF NEED TO INTUBATE PATIENT DUE TO DECREASING SAO2 ON HI-FLOW AT 100% AND NEED FOR CENTRAL LINE PLACEMENT-ORDERS RECEIVED.
--- NOTE | 2020-02-01 14:45 | NUR ---
PRODUCER ARBORIST MANAGER PHONED PATIENT'S DAUGHTER IOANA RE: INTUBATION - EXPLAINED NEED FOR INTUBATION AT PRESENT - VERBALIZED UNDERSTANDING - STATES SHE IS POA AND WANTS PATIENT INTUBATED - STATES WILL BRING POA PAPERS, PRODUCER ARBORIST MANAGER ADVISED HER TO CALL PRODUCER ARBORIST MANAGER BEFORE BRINGING TO HOSPITAL TO LEAVE AT MAIN LOBBY - VERBALIZED UNDERSTANDING. PRODUCER ARBORIST MANAGER ALSO OBTAINED CONSENT FOR PLACEMENT OF CENTRAL LINE TLC - BENEFITS AND RISKS EXPLAINED - VERBALIZED UNDERSTANDING - CONSENT WITNESSED PER SECOND RN. Addendum: 02/01/20 at 2147 by Erin Black RN PRODUCER ARBORIST MANAGER NOTIFIED DAUGHTER OF NEED FOR WRIST RESTRAINTS BILAT THIS AFTERNOON. LEFT WRIST RESTRAINT APPLIED DURING HD TREATMENT - VERBALIZED UNDERSTANDING AND IN AGREEMENT.
[2020-02-01] MEDS ORDERED: ETOMIDATE (2MG/ML) 20ML VIAL IV ONE ×2 (15:00→15:01)
[2020-02-01] MEDS ORDERED: SUCCINYLCHOLINE CHLORIDE 20 MG/ML 10ML VIAL IV ONE ×2 (15:00→15:02)
[2020-02-01] MEDS ORDERED: ROCURONIUM 10MG/ML 10ML VIAL IV ONE (15:01)
[2020-02-01] MEDS ORDERED: PROPOFOL 100 ML IV ONE (15:02)
--- NOTE | 2020-02-01 15:05 | NUR ---
RT FEMORAL LINE PLACED PER DR CARMONA - PATIENT MARJ FAIR.
[2020-02-01] MEDS ORDERED: NOREPINEPHRINE 8 MG/250ML KIT 250 ML IV ONE (15:12)
--- NOTE | 2020-02-01 15:13 | NUR ---
LEVOPHED STARTED - ALBUMIN GIVEN IV PER HD RN FOR SBP 70'S
--- NOTE | 2020-02-01 15:16 | NUR ---
DR CARMONA INTUBATED PATIENT WITH 8.0 ETT WITH ETOMIDATE 20MG AND SUCC 100MG IVP PER V.OReina Addendum: 02/01/20 at 2252 by Erin Black RN OG TUBE INSERTED PER DR CARMONA
[2020-02-01] MEDS: PROPOFOL 100 ML IV SCH (15:30)
[2020-02-01] MEDS ORDERED: PHENYLEPHRINE IV 250 ML IV ONE (15:31)
[2020-02-01] MEDS: NOREPINEPHRINE BITARTRATE 16 MG in SODIUM CHL 0.9% 250 ML IV SCH (16:22)
[2020-02-01] MEDS: fentaNYL Drip 2500mCg/250mlNS 250 ML IV SCH (16:22)
[2020-02-01] MEDS: PHENYLEPHRINE INJ 40 MG in SODIUM CHL 0.9% 250 ML IV SCH (16:22)
[2020-02-01] MEDS: VASOPRESSIN 50 UNITS in D5W 5% 247.5 ML IV SCH (16:45)
--- NOTE | 2020-02-01 17:00 | NUR ---
HD TREATMENT COMPLETED PER RN - 2L FLUID REMOVED. PATIENT ON PHENYLEPHRINE AND LEVOPHED GTT.-SEE SPREADSHEET.
--- NOTE | 2020-02-01 17:30 | NUR ---
DR LA UPDATED ON PATIENT CONDITION S/P INTUBATION - STATES AWARE OF INTUBATION PER RT.
[2020-02-01] MEDS ORDERED: PROPOFOL 200 ML IV ONE (17:40)
--- NOTE | 2020-02-01 20:00 | NUR ---
REPORT RECEIVED AND ASSUMED CARE; SEE INTERVENTIONS FOR ASSESSMENT; SEE IV SPREADSHEET FOR GTTS; VS STABLE AT THIS TIME WITH PT. ON LEVOPHED GTT AND SUKHDEV GTT; PT. IS RESTRAINED WITH BILATERAL, SOFT WRIST RESTRAINTS PT. ATTEMPTING TO REACH FOR ETT; WILL CONT. TO MONITOR.
--- NOTE | 2020-02-01 20:00 | NUR ---
DISABILITY COORDINATOR NOTIFIED PATIENT'S DAUGHTER OF PATIENT CONDITION AT PRESENT S/P INTUBATION - VERBALIZED UNDERSTANDING. PASSWORD ESTABLISHED.
[2020-02-01] MEDS: ERTAPENEM SOD INJ 0.5 GM in SODIUM CHL 0.9% 50 ML IV SCH (20:41)
--- NOTE | 2020-02-01 21:00 | NUR ---
DID NOT PERFORM SEDATION VACATION IT IS NOT APPROPRIATE AT THIS TIME; WILL CONT. TO MONITOR.
--- NOTE | 2020-02-01 21:43 | NUR ---
DR SHELTON NOTIFIED OF NEED FOR PATIENT TO HAVE RIGHT WRIST RESTRAINT APPLIED - ORDER RECEIVED. Addendum: 02/01/20 at 2145 by Erin Black RN ERROR- THIS NOTE SHOULD HAVE AMENDED 1640 NOTE FROM TODAY
[2020-02-02] VITALS (104 sets, daily range): BP systolic 69–142; BP diastolic 36–85
[2020-02-02] MEDS ORDERED: NOREPINEPHRINE 8 MG/250ML KIT 250 ML IV ONE (03:28)
--- NOTE | 2020-02-02 04:00 | NUR ---
PT. ADEQUATELY SEDATED AND RESTRAINTS REMOVED; WILL KEEP BILATERAL MITTENS ON AND CONT. TO MONITOR.
--- NOTE | 2020-02-02 05:00 | NUR ---
PT. HAVING LOW TEMP AND WARMING BLANKET APPLIED AND COVERED WITH ANOTHER BLANKET APPLIED ON TOP; WILL CONT. TO MONITOR.
[2020-02-02] MEDS: MIDODRINE HCL 10 MG TAB PO SCH ×3 (05:44→18:20)
[2020-02-02] MEDS: LEVOTHYROXINE SODIUM 100 MCG TAB PO SCH (05:44)
[2020-02-02] MEDS: CALCIUM ACETATE 667 MG CAP PO SCH ×3 (08:00→17:42)
--- NOTE | 2020-02-02 08:00 | NUR ---
OPENING NOTE PATIENT ON MECHANICAL VENTILATOR, SEDATED WITH FENTANYL AND PROPOFOL, INFUSING THROUGH RIGHT TLC. ON ISOLATION FOR + COVID AND + ESBL. BED IN LOW POSITION, IN VIEW OF NURSES STATION.
[2020-02-02 08:23] LABS: Basophils # (auto) 0 10 ^3/uL (0-0.2); Basophils % (auto) 0.2 % (0.0-2.0); Eosinophils # (auto) 0 10 ^3/uL (0-0.8); Nucleated Red Blood Cells % 0.1 %; White Blood Cell 15.1 10^3/uL (4.4-10.8)
[2020-02-02 08:25] LABS: Hematocrit 27.7 % (41.0-53.0); Hemoglobin 9.6 g/dL (13.5-17.5); Lymphocytes # (auto) 0.7 10 ^3/uL (0.4-5.4); Lymphocytes % (auto) 4.7 % (10.0-50.0); Mean Corpuscular Hemoglobin 34.1 pg (28.0-32.0); Mean Corpuscular Hgb Conc. 34.7 g/dL (32.0-36.0); Mean Corpuscular Volume 98.1 fL (80.0-100.0); Monocytes # (auto) 0.3 10 ^3/uL (0-1.3); Monocytes % (auto) 2.2 % (0.0-12.0); Neutrophils % (auto) 92.9 % (37.0-80.0); Platelet Count (auto) 42 10^3/uL (140-450); Red Blood Cells 2.83 10^6/uL (4.5-5.90); Red Cell Distribution Width 18.7 % (11.8-14.3)
[2020-02-02 08:40] LABS: Albumin 2.9 g/dL (3.4-5.0); Calcium 7.7 mg/dL (8.5-10.1); Potassium 4.2 mmol/L (3.5-5.1)
[2020-02-02 08:42] LABS: BUN/Creatinine Ratio 7.4; Bilirubin, Total 1.6 mg/dL (0.2-1.0); Total Protein 5.7 g/dL (6.4-8.2)
[2020-02-02] MEDS: PHENYLEPHRINE INJ 40 MG in SODIUM CHL 0.9% 250 ML IV SCH (09:02)
--- NOTE | 2020-02-02 09:21 | NUR ---
SEDATION VACATION HELD- PATIENT NOT HEMODYNAMICALLY STABLE Addendum: 02/02/20 at 0922 by Fanta Duarte RN Amended: Links added.
--- NOTE | 2020-02-02 09:25 | NUR ---
PATIENTS DAUGHTER IOANA CALLED FOR UPDATE PROVIDED PASSWORD. UPDATED ON STATUS THROUGHOUT THE NIGHT AND CURRENT PLAN OF CARE.
[2020-02-02 09:39] LABS: Partial Thromboplastin Time 48.8 sec (23.64-32.05)
[2020-02-02 09:42] LABS: INR 2.4 (0.9-1.15)
[2020-02-02] MEDS: AZITHROMYCIN 250 MG TAB PO SCH (10:00)
[2020-02-02] MEDS: NOREPINEPHRINE BITARTRATE 16 MG in SODIUM CHL 0.9% 250 ML IV SCH (10:00)
[2020-02-02] MEDS: FAMOTIDINE 20 MG TAB PO SCH (10:00)
[2020-02-02 11:01] LABS: Hepatitis B Surface Antibody Negative
[2020-02-02] MEDS: methylPREDNISolone SOD SUCC 40 MG/ML VL IV SCH ×2 (12:50→22:00)
[2020-02-02] MEDS: ZINC SULFATE 220mg CAP or TAB PO SCH (12:50)
[2020-02-02] MEDS: CHOLECALCIFEROL (VITD3) 1,000IU=25mCg TAB PO SCH (12:50)
[2020-02-02] MEDS: ASCORBIC ACID 500 MG TAB PO SCH (12:51)
[2020-02-02] MEDS: B-COMPLEX W/ C & FOLIC ACID(NEPHROVITE TAB) PO SCH (12:51)
[2020-02-02] MEDS: PROPOFOL 100 ML IV SCH (13:00)
--- NOTE | 2020-02-02 13:27 | NUR ---
DR SAMANO AT BEDSIDE DISCUSSED PATIENTS STATUS AND PLAN OF CARE. NO NEW ORDERS AT THIS TIME
--- NOTE | 2020-02-02 15:03 | NUR ---
DR PECK AT BEDSIDE / CALLED AND SPOKE WITH DAUGHTER IOANA UPDATED HER ON CURRENT STATUS. DISCUSSED PLAN OF CARE AT GREAT LENGTH. DAUGHTER WISHES TO CONTINUE CURRENT TREATMENT AT THIS TIME
[2020-02-02] MEDS ORDERED: AZITHROMYCIN 500MG/ 250ML 250 ML IV ONE (15:15)
[2020-02-02] MEDS: fentaNYL Drip 2500mCg/250mlNS 250 ML IV SCH (16:22)
[2020-02-02] MEDS: VASOPRESSIN 50 UNITS in D5W 5% 247.5 ML IV SCH (16:45)
[2020-02-02] MEDS ORDERED: VANCOMYCIN PER PHARMACY 0 MG IV SCH (17:00)
[2020-02-02] MEDS ORDERED: VANCOMYCIN 1GM/250ML 250 ML IV ONE ×2 (17:30→19:30)
[2020-02-02] MEDS: ERTAPENEM SOD INJ 0.5 GM in SODIUM CHL 0.9% 50 ML IV SCH (17:56)
[2020-02-03] VITALS (76 sets, daily range): BP systolic 77–131; BP diastolic 46–82
[2020-02-03] MEDS: PHENYLEPHRINE INJ 40 MG in SODIUM CHL 0.9% 250 ML IV SCH ×2 (01:42→18:22)
[2020-02-03] MEDS: MIDODRINE HCL 10 MG TAB PO SCH ×3 (06:00→18:41)
[2020-02-03] MEDS: LEVOTHYROXINE SODIUM 100 MCG TAB PO SCH (07:00)
[2020-02-03] MEDS: NOREPINEPHRINE BITARTRATE 16 MG in SODIUM CHL 0.9% 250 ML IV SCH ×2 (07:47→21:56)
[2020-02-03] MEDS: CALCIUM ACETATE 667 MG CAP PO SCH ×3 (08:00→18:00)
[2020-02-03 08:27] LABS: Hepatitis B Surface Antigen Negative (Negative)
[2020-02-03] MEDS: PROPOFOL 100 ML IV SCH ×2 (08:49→16:42)
--- NOTE | 2020-02-03 09:15 | NUR ---
AM ASSESSMENT COMPLETED,ORAL CARE PROVIDED, REPOSITIONED FOR COMFORT. PT ON COVID 19 ISOLATION ALL CARE IS CLUSTER TO LIMIT EXPOSURE TO VIRUS. AFEBRILE VSS, PT CURRENTLY ONLY ON LEVOPHED BEING TITRATED TO KEEP SBP ABOVE 90 OR MAP ABOVE 65. PT REMAINS ON VENTILATOR SEDATED ON FENTANYL AT 50 MCG/HR AND PROPOFOL AT 30 MCK/KG/MIN. PT IS ANURIC LAST HD WAS ON THE . AM LAS JUST DRAWN AT THIS TIME. LT SC JAVAN IN PLACE. DRESSING CDI. RT FEMORAL TLC WITH ALL PORTS BEING UTILIZED.
[2020-02-03 09:41] LABS: Basophils # (auto) 0 10 ^3/uL (0-0.2); Basophils % (auto) 0.2 % (0.0-2.0); Eosinophils # (auto) 0 10 ^3/uL (0-0.8); Lymphocytes # (auto) 0.5 10 ^3/uL (0.4-5.4); Monocytes # (auto) 0.5 10 ^3/uL (0-1.3); Neutrophils # (auto) 17.6 10 ^3/uL (1.6-8.6); White Blood Cell 18.6 10^3/uL (4.4-10.8)
[2020-02-03 09:43] LABS: Hemoglobin 10.7 g/dL (13.5-17.5); Lymphocytes % (auto) 2.6 % (10.0-50.0); Mean Corpuscular Hemoglobin 33.1 pg (28.0-32.0); Mean Corpuscular Hgb Conc. 33.5 g/dL (32.0-36.0); Mean Corpuscular Volume 98.8 fL (80.0-100.0); Monocytes % (auto) 2.6 % (0.0-12.0); Neutrophils % (auto) 94.6 % (37.0-80.0); Nucleated Red Blood Cells % 0.1 %; Platelet Count (auto) 49 10^3/uL (140-450); Red Blood Cells 3.24 10^6/uL (4.5-5.90); Red Cell Distribution Width 19.2 % (11.8-14.3)
[2020-02-03] MEDS ORDERED: FAMOTIDINE (10MG/ML) 2ML VL IV SCH (10:00)
[2020-02-03 10:08] LABS: Albumin 2.7 g/dL (3.4-5.0); Calcium 7.2 mg/dL (8.5-10.1); Potassium 4.8 mmol/L (3.5-5.1)
[2020-02-03 10:12] LABS: Bilirubin, Total 1.7 mg/dL (0.2-1.0); Total Protein 5.3 g/dL (6.4-8.2)
[2020-02-03 10:22] LABS: Partial Thromboplastin Time 47.8 sec (23.64-32.05)
[2020-02-03 10:23] LABS: INR 2.3 (0.9-1.15)
[2020-02-03 10:34] LABS: BUN/Creatinine Ratio 8.8
[2020-02-03] MEDS ORDERED: VANCOMYCIN 1GM/250ML 250 ML IV ONE (11:00)
[2020-02-03] MEDS: methylPREDNISolone SOD SUCC 40 MG/ML VL IV SCH ×2 (11:46→21:55)
[2020-02-03] MEDS: PANTOPRAZOLE 40 MG/10 ML VIAL INJ IV SCH (11:46)
[2020-02-03] MEDS: AZITHROMYCIN 500MG/ 250ML 250 ML IV SCH (11:47)
[2020-02-03] MEDS: B-COMPLEX W/ C & FOLIC ACID(NEPHROVITE TAB) PO SCH (11:48)
[2020-02-03] MEDS: ASCORBIC ACID 500 MG TAB PO SCH (11:49)
[2020-02-03] MEDS: CHOLECALCIFEROL (VITD3) 1,000IU=25mCg TAB PO SCH (11:50)
[2020-02-03] MEDS: ZINC SULFATE 220mg CAP or TAB PO SCH (11:51)
--- NOTE | 2020-02-03 12:48 | NUR ---
DR. SAMANO ROUNDING ON PT. NO NEW ORDERS RECEIVED, HE STATES " DR. PECK SPOKE WITH PT'S DAUGHTER AND SHE IS GOING TO SEE HOW PT DOES UNTIL THIS WEEKEND AND MIGHT DECIDE ON COMFORT CARE." NO NEW ORDERS RECEIVED.
[2020-02-03] MEDS: fentaNYL Drip 2500mCg/250mlNS 250 ML IV SCH (13:42)
[2020-02-03] MEDS: VASOPRESSIN 50 UNITS in D5W 5% 247.5 ML IV SCH (14:52)
[2020-02-03] MEDS: MEROPENEM 500MG IVPB 50 ML IV SCH (14:52)
--- NOTE | 2020-02-03 15:35 | NUR ---
DR. PECK ROUNDING ON PT. NO NEW ORDERS RECEIVED. HE STATES HE SPOKE TO PT'S DAUGHTER, PT'S DAUGHTER IS WAITING TO SEE HOW PT. DOES BY THE END OF THE WEEKEND TO DECIDE ON A POSSIBLE TERMINAL WEAN. I UPDATED , PT ONLY ON LEVOPHED AT 22 MCG/MIN , PT ON 30% FI02 SPO2 AT 100%.
--- NOTE | 2020-02-03 16:00 | NUR ---
WOUND CARE NOTE: IN TO SEE PATIENT AT THIS TIME FOR WOUND REEVALUATION. PATIENT IS COVID POSITIVE, ON AIRBORNE ISOLATION IN ICU. PATIENT CONTINUES TO BE INTUBATED, SEDATED. HE HAS CURRENT CL SCORE OF 11. PATIENT CONTINUES TO HAVE MULTIPLE SKIN INTEGRITY ISSUES, INCLUDING: DTI WITH TWO OPEN STAGE 2 PRESSURE INJURIES TO SACRUM, INTACT DTI'S TO BACK ALONG SPINAL PROCESS, SKIN TEARS TO RIGHT WRIST AND FOREARM, LEFT ARM SCABBED SKIN TEAR. ALL WOUNDS PHOTOGRAPHED FOR REFERENCE. PATIENT VERY THIN, WITH MULTIPLE PROMINENT BONY PROMINENCES. PATIENT SHOULD BE PLACED ON SPECIALTY AIR BED. WILL ORDER AIRBED WITH [employer] [facility]. PATIENT TO BE PLACED, PENDING DELIVERY. APPLIED THERAHONEY AND OPTIFOAM GENTLE DRESSINGS TO ALL OPEN WOUNDS PER MD ORDER. PATIENT REPOSITIONED ONTO RIGHT SIDE, REDISTRIBUTING PRESSURE POINTS USING PILLOWS/WEDGES. RECOMMEND: SPECIALTY AIR BED, DAILY/PRN DRESSING CHANGES TO SACRAL WOUNDS, Q 3 DAY/PRN DRESSING CHANGE TO BILAT ARM SKIN TEARS, XXLC-WT-DCYM POSITIONING ONLY, AVOIDING SUPINE POSITION, CONTINUATION WITH ALL OTHER WOUND CARE ORDERS PREVIOUSLY PRESCRIBED BY MD. WOUND CARE TEAM WILL CONTINUE TO MONITOR. Addendum: 02/03/20 at 1817 by Pamela Chavez RN Amended: Links added.
--- NOTE | 2020-02-03 17:10 | NUR ---
WOUND CARE NOTE: VCP 500 AIR BED ORDERED AT THIS TIME. PATIENT TO BE PLACED, PENDING DELIVERY BY ADAM JULES
--- NOTE | 2020-02-03 18:04 | NUR ---
DR. OVALLES ROUNDING ON PT. HE DECREASED THE PEEP ON VENTILATOR TO 10. HE WANTS PT TO HAVE CPAP TRIAL IN AM. RT MADE AWARE OF VENTILATOR CHANGES.
--- NOTE | 2020-02-03 23:15 | NUR ---
CONDITION UPDATE PROPOFOL OFF, VS UNSTABLE, HR DROPPED TO 48-50'S, SBP 60'S TO 90'S, GWR7NODE INCREASED FROM 17 MCG/MIN TO 20 MCG/MIN. WILL CONTINUE TO MONITOR VS.
[2020-02-04] VITALS (102 sets, daily range): BP systolic 49–109; BP diastolic 24–80
--- NOTE | 2020-02-04 03:00 | NUR ---
Patient bathe/linen change Patient given complete bath. Skin integrity assessed for any changes. Linens changed. Sacral optifoam. Patient repositioned for comfort.
[2020-02-04 04:22] LABS: Basophils # (auto) 0 10 ^3/uL (0-0.2); Basophils % (auto) 0.1 % (0.0-2.0); Eosinophils # (auto) 0 10 ^3/uL (0-0.8); Hematocrit 31.3 % (41.0-53.0); Hemoglobin 10.7 g/dL (13.5-17.5); Lymphocytes # (auto) 0.4 10 ^3/uL (0.4-5.4); Lymphocytes % (auto) 1.9 % (10.0-50.0); Mean Corpuscular Hemoglobin 33.1 pg (28.0-32.0); Mean Corpuscular Hgb Conc. 34.1 g/dL (32.0-36.0); Mean Corpuscular Volume 97.1 fL (80.0-100.0); Monocytes # (auto) 0.5 10 ^3/uL (0-1.3); Neutrophils # (auto) 21.9 10 ^3/uL (1.6-8.6); Nucleated Red Blood Cells % 0.2 %; Platelet Count (auto) 42 10^3/uL (140-450); Red Blood Cells 3.23 10^6/uL (4.5-5.90); Red Cell Distribution Width 18.6 % (11.8-14.3); White Blood Cell 22.9 10^3/uL (4.4-10.8)
[2020-02-04 04:39] LABS: Potassium 4.7 mmol/L (3.5-5.1)
[2020-02-04 04:43] LABS: Calcium 7.1 mg/dL (8.5-10.1)
[2020-02-04] MEDS: MIDODRINE HCL 10 MG TAB PO SCH ×2 (06:00→12:00)
[2020-02-04] MEDS: LEVOTHYROXINE SODIUM 100 MCG TAB PO SCH (07:18)
[2020-02-04 07:33] LABS: Partial Thromboplastin Time 52.1 sec (23.64-32.05)
[2020-02-04 07:34] LABS: INR 2.62 (0.9-1.15)
[2020-02-04] MEDS: CALCIUM ACETATE 667 MG CAP PO SCH ×3 (07:52→17:56)
[2020-02-04] MEDS: PHENYLEPHRINE INJ 40 MG in SODIUM CHL 0.9% 250 ML IV SCH (11:02)
[2020-02-04] MEDS: PANTOPRAZOLE 40 MG/10 ML VIAL INJ IV SCH (11:07)
[2020-02-04] MEDS: AZITHROMYCIN 500MG/ 250ML 250 ML IV SCH (11:08)
[2020-02-04] MEDS: methylPREDNISolone SOD SUCC 40 MG/ML VL IV SCH ×2 (11:08→21:43)
[2020-02-04] MEDS: B-COMPLEX W/ C & FOLIC ACID(NEPHROVITE TAB) PO SCH (11:09)
[2020-02-04] MEDS: ZINC SULFATE 220mg CAP or TAB PO SCH (11:09)
[2020-02-04] MEDS: CHOLECALCIFEROL (VITD3) 1,000IU=25mCg TAB PO SCH (11:10)
[2020-02-04] MEDS: ASCORBIC ACID 500 MG TAB PO SCH (11:10)
[2020-02-04] MEDS ORDERED: VANCOMYCIN 500 MG in D5W 5% 100 ML IV ONE (13:00)
--- NOTE | 2020-02-04 14:48 | NUR ---
Nutrition Followup Notes Pt wt is 73.9 kg Pt is currently NPO d/t scheduled medical procedure.Prior to NPO status, pt was on a pureed diet, with a poor appetite aeb ave 38% of two meals eaten in two days per RN doc. Pt with no noted distress or with complaints per RN doc. Will continue to monitor PO status, skin status, pertinent labs and weight trends. Will f/u in 2 to 3 days. Est energy needs: 3385-9640 kcals (30-35 kcal/kgBW) d/t pt receiving HD Est protein needs: 82-90 gms/day (1.1-1.2 gm/kgBW) d/t pt receiving HD Will continue to monitor and reassess prn. LABS: BUN 55 H, CR 6.10 H, GFR 9 L, GLUC 155 H, TP 5.3 L, ALB 2.7 L GI: Incontinent every 3-6 hrs per limnologist BS: 11 high risk, please refer to wound assessment report for full details. PES: Problem Altered nutrition related lab values r/t current/chronic medical condition aeb hypokalemia, hyperchloremia, elev RFTs, low GFR, hypoproteinemia, severe hypoalbuminemia Comments 1) Continue to closely monitor pt PO intake to meet at least 75% of meals 2) Consider 500mg VitC BID 3) Continue current plan of care
[2020-02-04] MEDS: fentaNYL Drip 2500mCg/250mlNS 250 ML IV SCH (16:22)
[2020-02-04] MEDS: VASOPRESSIN 50 UNITS in D5W 5% 247.5 ML IV SCH (16:45)
[2020-02-04] MEDS: MEROPENEM 500MG IVPB 50 ML IV SCH (17:54)
--- NOTE | 2020-02-04 21:00 | NUR ---
OPENING SHIFT RECEIVED REPORT FROM DAY SHIFT RN. ASSUMED CARE OF PATIENT. PATIENT INTUBATED WITH NO SIGNS OR SYMPTOMS OF SOB, PAIN OR DISTRESS. 02 SAT - 97%. RIGHT FEMORAL TLC AND LEFT JAVAN CATHETER - CLEAN/DRY/INTACT. REPOSITIONED FOR COMFORT. BED IN LOWEST POSITION, SIDE RAILS UP X2. WILL CONTINUE TO MONITOR. Addendum: 02/04/20 at 2219 by THIAGO JEFF RN RN VASOPRESSORS: LEVOPHED - 30MCG/MIN
--- NOTE | 2020-02-04 22:00 | NUR ---
PATIENT OFF SEDATION SINCE 02/04 400, UNAROUSABLE AT THIS TIME. WILL CONTINUE TO MONITOR. Addendum: 02/04/20 at 2203 by THIAGO JEFF RN RN Amended: Links added.
--- NOTE | 2020-02-04 22:04 | NUR ---
SEDATION TURNED OFF 02/04 400, PATIENT REMAINS UNAROUSABLE/NON RESPONSIVE AT THIS TIME. WILL CONTINUE TO MONITOR. Addendum: 02/04/20 at 2204 by THIAGO JEFF RN RN Amended: Links added.
--- NOTE | 2020-02-04 22:30 | NUR ---
DNR / LOW BLOOD PRESSURE BLOOD PRESSURE TRENDING BETWEEN 60'S - 90'S SYSTOLIC. PATIENT CODE STATUS - DNR WITH NO REINTUBATION AND TO ONLY BE KEPT ON LEVOPHED. LEVOPHED - 30MCG/MIN WILL CONTINUE TO MONITOR.
[2020-02-05] VITALS (52 sets, daily range): BP systolic 57–87; BP diastolic 30–52
[2020-02-05] MEDS: PHENYLEPHRINE INJ 40 MG in SODIUM CHL 0.9% 250 ML IV SCH (03:42)
--- NOTE | 2020-02-05 04:15 | NUR ---
TEMPERATURE NOTED RECTAL TEMP OF 103.3 DEGREES FAHRENHEIT. COOLING MEASURES INITIATED. WILL CONTINUE TO MONITOR.
--- NOTE | 2020-02-05 04:25 | NUR ---
MORNING CARE PERFORMED MORNING CARE WITH WASH CLOTHS. PARTIAL LINEN CHANGE AND GOWN CHANGED. REPOSITIONED FOR COMFORT. SKIN REASSESSED AT THIS TIME. ORAL CARE PERFORMED. BED IN LOWEST POSITION, SIDE RAILS UP X2. WILL CONTINUE TO MONITOR.
--- NOTE | 2020-02-05 04:50 | NUR ---
UPDATED DAUGHTER SPOKE WITH DAUGHTER OVER THE PHONE AND UPDATED HER ON PATIENT STATUS. WILL CONTINUE TO MONITOR.
[2020-02-05 04:58] LABS: Basophils # (auto) 0 10 ^3/uL (0-0.2); Basophils % (auto) 0.2 % (0.0-2.0); Eosinophils # (auto) 0 10 ^3/uL (0-0.8); Lymphocytes # (auto) 0.5 10 ^3/uL (0.4-5.4); Monocytes # (auto) 0.4 10 ^3/uL (0-1.3); Neutrophils # (auto) 14.8 10 ^3/uL (1.6-8.6); Platelet Count (auto) 34 10^3/uL (140-450)
[2020-02-05 05:00] LABS: Hematocrit 31.4 % (41.0-53.0); Hemoglobin 10.3 g/dL (13.5-17.5); Lymphocytes % (auto) 3.2 % (10.0-50.0); Mean Corpuscular Hgb Conc. 32.8 g/dL (32.0-36.0); Mean Corpuscular Volume 100.5 fL (80.0-100.0); Monocytes % (auto) 2.6 % (0.0-12.0); Nucleated Red Blood Cells % 0.6 %; Red Blood Cells 3.12 10^6/uL (4.5-5.90); Red Cell Distribution Width 18.2 % (11.8-14.3); White Blood Cell 15.7 10^3/uL (4.4-10.8)
[2020-02-05] MEDS: NOREPINEPHRINE BITARTRATE 16 MG in SODIUM CHL 0.9% 250 ML IV SCH (05:28)
[2020-02-05 05:34] LABS: BUN/Creatinine Ratio 8.8; Calcium 7.3 mg/dL (8.5-10.1); Potassium 5.4 mmol/L (3.5-5.1)
[2020-02-05] MEDS: MIDODRINE HCL 10 MG TAB PO SCH ×2 (06:00→12:00)
[2020-02-05] MEDS: LEVOTHYROXINE SODIUM 100 MCG TAB PO SCH (06:24)
--- NOTE | 2020-02-05 07:02 | NUR ---
END OF SHIFT REPORT GIVEN TO DAY SHIFT RN. CARE ENDORSED.
[2020-02-05] MEDS: CALCIUM ACETATE 667 MG CAP PO SCH ×2 (08:40→12:00)
[2020-02-05] MEDS: CHOLECALCIFEROL (VITD3) 1,000IU=25mCg TAB PO SCH (10:30)
[2020-02-05] MEDS: AZITHROMYCIN 500MG/ 250ML 250 ML IV SCH (11:08)
[2020-02-05] MEDS: ZINC SULFATE 220mg CAP or TAB PO SCH (11:08)
[2020-02-05] MEDS: PANTOPRAZOLE 40 MG/10 ML VIAL INJ IV SCH (11:08)
[2020-02-05] MEDS: methylPREDNISolone SOD SUCC 40 MG/ML VL IV SCH (11:08)
[2020-02-05] MEDS: ASCORBIC ACID 500 MG TAB PO SCH (11:09)
--- NOTE | 2020-02-05 11:30 | NUR ---
ASSESSMENT, MEDS GIVEN AND WARMING MEASURES APPLIED AT THIS TIME. CURRENT TEMP 93.7 RECTALLY. BEAR HUGGER AND OTHER WARMING MEASURES APPLIED AT THIS TIME. CURRENT HR SR 92, UNABLE TO OBTAIN O2 SATS, BP 76/40 ON MAX DOSE OF LEVOPHED GTT. SEE PIPE ORGAN MECHANIC APPRENTICE, IV FLOW SHEET AND EMAR FOR FURTHER INFORMATION.
[2020-02-05] MEDS: B-COMPLEX W/ C & FOLIC ACID(NEPHROVITE TAB) PO SCH (11:35)
[2020-02-05] MEDS ORDERED: VANCOMYCIN 500 MG in D5W 5% 100 ML IV ONE (13:00)
[2020-02-05] MEDS ORDERED: NOREPINEPHRINE 8 MG/250ML KIT 250 ML IV ONE (13:15)
--- NOTE | 2020-02-05 14:00 | NUR ---
DR. PECK AT NURSING STATION: FAMILY CALLED UPDATED MD ON PT'S POOR STATUS, LABS AND HEMODYNAMICS AT THIS TIME. ORDERS GIVEN FOR TERMINAL WEAN AFTER MD TALKED WITH PATIENT'S DAUGHTER, IOANA. FAMILY WANTING TERMINAL WEAN. OBTAINED CONSENTS FOR DNR STATUS AT THIS TIME WITH PENDING TERMINAL WEAN. CHARGE NURSE AND ICU DIRECTOR NOTIFIED. ONCE PATIENT EXPIRES, MD WANTING APPLICATIONS SCIENTIST TO PRONOUNCE OF PATIENT. NOTIFIED SARAH APPLICATIONS SCIENTIST, RN. SEE OTHER ORDERS GIVEN. SEE EMAR FOR TIMES MEDS GIVEN. CONTINUE CARE. Addendum: 02/05/20 at 1940 by Analilia Womack RN CURRENT V/S FOLLOWED TEMP 93.2 RECTAL, BP 83/47, HR 89, RR 24 ON VENT. LEVO AT MAX RATE.
[2020-02-05] MEDS ORDERED: LORazepam 2MG/ML-1ML VIAL ONE (14:16)
[2020-02-05] MEDS ORDERED: MORPHINE SULFATE 4 MG/ML SYR/VIAL ONE (14:17)
--- NOTE | 2020-02-05 14:30 | NUR ---
TERMINAL EXTUBATED PT AT APPROXIMATELY 1430 WITH NO INCIDENT REPORTED. PELON WATSON AT BEDSIDE. WILL CONTINUE TO MONITOR PT.
--- NOTE | 2020-02-05 15:30 | NUR ---
PRONOUNCEMENT OF REQUESTED TO PRONOUNCE PT PMD UNAVAILABLE. FOUND PULSELESS AND APNEIC. NO HEART TONES AUSCULTATED AFTER 1 FULL MINUTE; NO RESPIRATIONS AFTER ONE FULL MINUTE. NO CORNEAL, GAG REFLEXES; NO PUPILLARY RESPONSES. TOD IS 1530.
--- NOTE | 2020-02-05 15:45 | NUR ---
FAMILY UPDATED: NOTIFIED FAMILY OF PATIENT'S EXPIRATION TALKED WITH IOANA, DAUGHTER OF PATIENT, AT THIS TIME. UPDATED HER THAT HER FATHER HAS PASSES AT 1530, TODAY. DAUGHTER VERBALIZES UNDERSTANDING. OBTAINED CONSENT FROM IOANA, FOR RELEASE OF BODY/ PATIENT BELONGING'S, TO GO TO FAMILY'S CHOICE OF MORTUARY. OBTAINED CONSENT WITH MYSELF AND PELON ALBARADO ICU.
--- NOTE | 2020-02-05 16:10 | NUR ---
AUTHORIZATION [facility] AUTHORIZES TO GROUNDSKEEPER SUPERVISOR REMAINS OF PATIENT. INFORMED THAT PATIENT IS COVID (+) POSITIVE. WILL CALL THEM WHEN ELECTRICAL SUPERINTENDENT RELEASES REMAINS OF PATIENT. WAITING FOR CALL BACK. CONTINUE CARE.
[2020-02-05] MEDS: PROPOFOL 100 ML IV SCH (17:09)
[2020-02-05] MEDS: MEROPENEM 500MG IVPB 50 ML IV SCH (19:35)
--- NOTE | 2020-02-05 21:16 | NUR ---
RESERVATIONS AND TICKETING AGENT CALLED BACK SPOKE WITH DARREN ROSADO FROM THE CORONERS OFFICE. NOT A RESERVATIONS AND TICKETING AGENT'S CASE. CASE# [id number]
--- NOTE | 2020-02-05 21:32 | NUR ---
[facility] AND MADE AWARE THAT BODY HAS BEEN RELEASED. SHE STATED THAT SHE WILL SPEAK WITH HER DIRECTOR ON WHEN TO MULTI SPINDLE OPERATOR THE BODY. AWAITING CALL BACK.
--- NOTE | 2020-02-05 21:57 | NUR ---
VIJAY LR CALLED BACK SPOKE WITH SEA, UNABLE TO JUICE TESTER BODY AT TONIGHT. WILL BE ABLE TO JUICE TESTER TOMORROW 02/06/20 IN THE AM.
--- NOTE | 2020-02-06 06:18 | NUR ---
VIJAY LR SPOKE WITH DAVID, RECEIVED AN ETA OF 0900 CART DRIVER.
== END 2020-02-05 06:55 | disposition expired | DRG 208 ==
LOC: ER 13:18 → EDBD 13:18 → TELE 13:19 → TELE-EAST 18:16 → ICU WEST 02-01 10:57
PROVIDERS: ADMIT Nurse Practitioner Acute Care; ATTEND Internal Medicine
PROC: 5A1D70Z Performance of Urinary Filtration, Intermittent, Less than 6 Hours Per Day (ICD-10-PCS; 2020-01-27)
PROC: 5A1D70Z Performance of Urinary Filtration, Intermittent, Less than 6 Hours Per Day (ICD-10-PCS; 2020-01-29)
PROC: 5A1945Z Respiratory Ventilation, 24-96 Consecutive Hours (ICD-10-PCS; principal; 2020-02-01)
PROC: 0BH17EZ Insertion of Endotracheal Airway into Trachea, Via Natural or Artificial Opening (ICD-10-PCS; 2020-02-01)
PROC: 5A1D70Z Performance of Urinary Filtration, Intermittent, Less than 6 Hours Per Day (ICD-10-PCS; 2020-02-01)
PROC: 02HV33Z Insertion of Infusion Device into Superior Vena Cava, Percutaneous Approach (ICD-10-PCS; 2020-02-01)
PROC: 5A1D70Z Performance of Urinary Filtration, Intermittent, Less than 6 Hours Per Day (ICD-10-PCS; 2020-02-04)
DX: U07.1 COVID-19 (principal); N18.6 End stage renal disease; J12.9 Viral pneumonia, unspecified; R65.20 Severe sepsis without septic shock; D65 Disseminated intravascular coagulation [defibrination syndrome]; J96.01 Acute respiratory failure with hypoxia; A41.89 Other specified sepsis; N39.0 Urinary tract infection, site not specified; Z16.12 Extended spectrum beta lactamase (ESBL) resistance; I13.2 Hypertensive heart and chronic kidney disease with heart failure and with stage 5 chronic kidney disease, or end stage renal disease; J98.11 Atelectasis; J44.0 Chronic obstructive pulmonary disease with (acute) lower respiratory infection; Z99.2 Dependence on renal dialysis; D63.8 Anemia in other chronic diseases classified elsewhere; E03.9 Hypothyroidism, unspecified; K74.60 Unspecified cirrhosis of liver; E88.09 Other disorders of plasma-protein metabolism, not elsewhere classified; B96.1 Klebsiella pneumoniae [K. pneumoniae] as the cause of diseases classified elsewhere; Z66 Do not resuscitate; Z83.3 Family history of diabetes mellitus
CPT/HCPCS: 36415; 36600; 51702; 71045; 80048; 80053; 80202; 81001; 82306; 82728; 82805; 83605; 83615; 83735; 83880; 83970; 84100; 84443; 84484; 85025; 85379; 85610; 85730; 86141; 86706; 87040; 87070; 87086; 87088; 87186; 87340; 87493; 87804; 87880; 90935; 93005; 93970; 94002; 94003; 94640; 96361; 96374; 97163; 99291; C9113; G0378; J0330; J0696; J0885; J1335; J1642; J2185; J2704; J7060; P9047